=== PATIENT | male | born 1955 ===

== ENCOUNTER 2019-01-10 13:26 | Outpatient (CLI) | payer OTHER ==
[2019-01-10 13:40] VITALS: BP 114/67
--- NOTE | 2019-01-10 20:15 | Consultation ---
DATE OF CONSULTATION: 01/10/2019 CHIEF COMPLAINT: History of colonic polyps. Referred for repeat colonoscopy. PAST MEDICAL HISTORY: Colonic polyp. PAST SURGICAL HISTORY: None. MEDICATIONS: None. FAMILY HISTORY: Noncontributory. SOCIAL HISTORY: The patient denies any tobacco, alcohol, or drug abuse. ALLERGIES: No known allergies. REVIEW OF SYSTEMS: A 10-point review of systems was performed and pertinent positive in the HPI. PHYSICAL EXAMINATION: VITAL SIGNS: Temperature 98.2, blood pressure 114/67, pulse 56, respirations 20. HEENT: Normocephalic and atraumatic. Sclerae anicteric. NECK: Supple. No evidence of obvious lymphadenopathy. CARDIOVASCULAR: Regular rate and rhythm. Plus S1 and S2. No obvious murmur. LUNGS: Clear to auscultation bilaterally. ABDOMEN: Positive bowel sounds. Soft and nontender. No rebound. No guarding. No peritoneal sign. EXTREMITIES: No cyanosis. No clubbing. No edema. ASSESSMENT: This is a 63-year-old patient with past medical history of colonic polyps, needs repeat colonoscopy. Plan to schedule him when authorization is obtained. Meanwhile, we are going to the patient to get a colonoscopy prep and instruction. Isidro Rubio M.D. DR: Lisa JOB#: [id number] CC:
[2019-01-11] MEDS ORDERED: NO MEDICATION (11:51)
== END 2019-01-10 15:26 | disposition home or self-care (01) ==
LOC: PAN 13:26
DX: Z01.818 Encounter for other preprocedural examination (principal); Z86.010 Personal history of colon polyps

== ENCOUNTER 2019-08-23 14:31 | Outpatient (CLI) | payer MEDICAID ==
[~2019-08-23 14:31] MED LIST: NO MEDICATION
--- NOTE | 2019-08-23 14:58 | General Progress Note ---
Assessment/Plan Assessment/Plan: 3 colon polyps ppor colon prep needs repeat colonoscopy and 2 days prep Objective General Appearance: alert EENT: normal ENT inspection Neck: normal alignment Cardiovascular: normal rate Respiratory/Chest: lungs clear Abdomen: normal bowel sounds, non tender, soft Isidro Rubio MD Aug 23, 2019 14:58
== END 2019-08-23 16:31 | disposition home or self-care (01) ==
LOC: PAN 14:31
DX: K63.5 Polyp of colon (principal)
CPT/HCPCS: 99212

== ENCOUNTER → 2020-07-21 | Outpatient (CLI) | payer MEDICAID ==
[2020-07-21 13:11] VITALS: BP 116/63
--- NOTE | 2020-07-22 10:21 | General Progress Note ---
Subjective ROS Limited/Unobtainable: Yes Objective Last 24 Hour Vital Signs Date Time Temp Pulse Resp B/P (MAP) Pulse Ox O2 Delivery O2 Flow Rate FiO2 07/21/20 13:11 97.7 48 16 116/63 100 General Appearance: no apparent distress EENT: normal ENT inspection Neck: supple Cardiovascular: normal rate Respiratory/Chest: decreased breath sounds Abdomen: normal bowel sounds, non tender, soft Extremities: non-tender Assessment/Plan Assessment/Plan: s/p colonoscopy hemorrhoids repeat colon in 5 years Isidro Rubio MD Jul 22, 2020 10:20
== END | disposition home or self-care (01) ==
LOC: PAN 12:58
DX: K64.9 Unspecified hemorrhoids (principal)